=== PATIENT | female | born 2005 | race Asian ===

== ENCOUNTER 2025-01-27 06:47 | Outpatient (REF) | payer OTHER, SELFPAY ==
--- OUTSIDE RECORDS SUMMARY | 2025-01-27 06:49 | XMS_ITS | Clinical Summary ---
Author Organization [facility] Address [address] [facility] [address] [facility] [address] [place] [address] Care Team Providers Care Disease Management Nurse Name Role Phone Augustina Sanderson MD Primary Care Provider [phone] Allergies No known active allergies Medications ProAir HFA 90 mcg/actuation inhaler Inhale. 1 Active betamethasone dipropionate (Diprolene) 0.05 % ointment SMARTSI Topical Daily PRN 2 Active Tri-Estarylla 0.18/0.215/0.25 mg-35 mcg (28) tablet Take 1 tablet by mouth in the morning. 2 Active magnesium oxide (Mag-Ox) 400 mg tabletIndications:E pisodic tension-type headache, not intractable Take 1 tablet (400 mg) by mouth in the morning. 30 tablet 2 2 Active ondansetron ODT (Zofran-ODT) 4 mg disintegrating tabletIndications:N on-intractable vomiting with nausea, unspecified vomiting type Take 1 tablet (4 mg) by mouth every 8 (eight) hours if needed for nausea or vomiting for up to 5 doses. 5 tablet 2 Active Active Problems Problem Noted Date Diagnosed Date Mild intermittent asthma 08/16/2021 Social History Tobacco Use Types Packs/Day Years Used Date Smoking Tobacco: Never Smokeless Tobacco: Never Alcohol Use Standard Drinks/Week Comments Not Currently 0 (1 standard drink = 0.6 oz pur e alcohol) Comments No Sex and Gender Information Value Date Recorded Sex Assigned at Not on file Legal Sex Female 7:17 AM EST Gender Identity Female 04/11/2023 9:15 AM EST Sexual Orientation Not on file Last Filed Vital Signs Vital Sign Reading Time Taken Comments Blood Pressure 104/62 04/11/2023 1:57 PM EST Pulse 74 04/11/2023 1:57 PM EST Temperature 37.6 C (99.7 F) 04/11/2023 1:57 PM EST Respiratory Rate 20 04/11/2023 1:57 PM EST Oxygen Saturation 100% 04/11/2023 1:57 PM EST Inhaled Oxygen Concentration - - Weight 69.7 kg (153 lb 10.6 oz) 10/04/2022 7:54 PM EDT Height 165.1 cm (5' 5 ) 10/02/2022 6:29 PM EDT Body Mass Index 25.57 10/02/2022 6:29 PM EDT Plan of Treatment Health Maintenance Due Date Last Done Comments Chlamydia Screening 2003 HIV Screening 2003 MMR Vaccines (1 of 1 - Standard series) 11/28/2004 Varicella Vaccines (1 of 2 - 13+ 2-dose series) 11/28/2016 HPV Vaccines (1 - 3-dose series) 11/28/2018 Hepatitis C Screening 11/28/2021 DTaP/Tdap/Td Vaccines (1 - Tdap) 11/28/2022 Hepatitis B Vaccines (1 of 3 - 19+ 3-dose series) 11/28/2022 Pneumococcal Vaccine: Pediatrics (0 to 5 Years) and At-Risk Patients (6 to 49 Years) (1 of 2 - PCV) 11/28/2022 Depression Screening 03/24/2024 COVID-19 Vaccine ( - 2024- season) 2024 03/01/2022, 03/29/2021, 08/05/2020, Additional history exists Influenza Vaccine (#1) 2024 4, 01/11/2023, 02/04/2022, Additional history exists Pap Smear 11/28/2024 Meningococcal Vaccine Completed 03/16/2020 Meningococcal B Vaccine Completed 05/19/2020, 03/16 HIB Vaccines Aged Out No longer eligi ble based on patient's age to complete this topic Hepatitis A Vaccines Aged Out No long er eligible based on patient's age to complete this topic IPV Vaccines Aged Out No longer eligi ble based on patient's age to complete this topic Rotavirus Vaccines Aged Out No longer eligible based on patient's age to complete this topic Insurance Care Teams Disease Management Nurse Relationship Specialty Start Date End Date Augustina Sanderson MD [facility] [address] [place] [address] PCP - General 04/27/21
--- OUTSIDE RECORDS SUMMARY | 2025-01-27 06:49 | XMS_ITS | Encounter Summary ---
Author Organization [facility] Address [address] [facility] [address] [place] [address] Care Team Providers Care Elastic Attacher Chainstitch Name Role Phone Augustina Sanderson MD Primary Care Provider [phone] Encounter Details Date Type Department Care Team (Late st Contact Info) Description 10/07/2022 Community Care Management [facility] [address] [place] [address] [employer], Physician[facility] [address] [place] [address] Social History Tobacco Use Types Packs/Day Years [...] AM EST Sexual Orientation Not on file documented as of this encounter Plan of Treatment Not on file documented as of this encounter Visit Diagnoses Not on filedocumented in this encounter Additional Health Concerns Infection Onset Date Last Indicated Resolved Time COVID-19 Rule-Out 04/11/2023 04/11/2023 04/11/2023 11:09 AM EST documented as of this encounter Care Teams Elastic Attacher Chainstitch Relationship Specialty Start Date End Date Augustina Sanderson MD [facility] [address] [place] [address] PCP - General 04/27/21 documented as of this encounter
== END 2025-01-27 06:48 | disposition home or self-care (01) ==
LOC: HO.UMASIMG 06:47
PROVIDERS: Visit Provider Nurse Practitioner Women's Health
DX: Z13.89 Encounter for screening for other disorder (principal)